=== PATIENT | male | born 1970 | race Two or more races ===

== ENCOUNTER 2018-03-14 16:27 | Emergency (ER) | payer MEDICAID ==
[~2018-03-14] VITALS: Ht 180.3 cm; Wt 104.3 kg
[~2018-03-14 16:27] MED LIST: GLIP10TA11 PO; METF500T4 PO
[2018-03-14 17:16] LABS: BASOPHILS # (AUTO) 0.1 /CMM (0.0-0.2); BASOPHILS % (AUTO) 0.3 % (0.0-2.0); EOSINOPHILS # (AUTO) 0.1 /CMM (0.0-0.7); EOSINOPHILS % (AUTO) 0.7 % (0.0-6.0); HEMATOCRIT 47 % (39-51); HEMOGLOBIN 16.4 g/dL (13.5-17.5); LYMPHOCYTES # (AUTO) 1.7 /CMM (0.8-4.8); LYMPHOCYTES % (AUTO) 9.9 % (20.0-44.0); MEAN CORPUSCULAR HEMOGLOBIN 31 PG (26.0-33.0); MEAN CORPUSCULAR HGB CONC 35 g/dl (31.0-36.0); MEAN CORPUSCULAR VOLUME 89 fL (80-96); MONOCYTES % (AUTO) 5.5 % (2.0-12.0); NEUTROPHILS # (AUTO) 14.8 /CMM (1.8-8.9); NEUTROPHILS % (AUTO) 83.6 % (43.0-81.0); PLATELET COUNT (AUTO) 319 /CMM (150-450); RDW COEFFICIENT OF VARIATION 13.4 (11.5-15.0); RED BLOOD CELL COUNT(AUTO) 5.31 MIL/uL (4.5-6.0); WHITE BLOOD COUNT (AUTO) 17.7 K/uL (4.3-11.0)
[2018-03-14] MEDS ORDERED: CEFAZOLIN 1 GM in IV D5W 50 ML IV ONE (17:30)
[2018-03-14] MEDS ORDERED: KETOROLAC TROMETHAMINE INJ 30 MG/ML VIAL IV ONE (17:30)
[2018-03-14 17:32] LABS: CALCIUM, SERUM 9.3 mg/dL (8.5-10.1); POTASSIUM 4.3 mmol/L (3.5-5.1)
[2018-03-14 17:40] LABS: BAND % (MANUAL) 11 % (0.0-5.0); EOSINOPHILS % (MANUAL) 2 % (0-4); LYMPHOCYTES % (MANUAL) 8 % (16-48); MONOCYTES % (MANUAL) 8 % (0-11.0); NEUTROPHILS % (MANUAL) 71 (42-76)
[2018-03-14] MEDS ORDERED: KETOROLAC TROMETHAMINE INJ 30 MG/ML VIAL ONE (17:53)
[2018-03-14] MEDS ORDERED: VANCOMYCIN 1 GM in IV D5W 250 ML IV ONE (18:00)
[2018-03-14] MEDS ORDERED: VANCOMYCIN 500 MG VIAL ONE (18:35)
[2018-03-14] MEDS ORDERED: VANCOMYCIN 1 GM VIAL ONE (18:36)
--- NOTE | 2018-03-14 19:40 | NUR ---
IV removed. Catheter intact and site benign. Pressure and 4x4 applied to site. No bleeding noted.
[2018-03-14 19:52] VITALS: BP 128/91
--- NOTE | 2018-03-14 19:52 | NUR ---
Patient discharged to home in stable condition. Written and verbal after care instructions given. Patient verbalizes understanding of instruction.
== END 2018-03-14 19:53 | disposition home or self-care (01) ==
LOC: ER 16:28
DX: L03.114 Cellulitis of left upper limb (principal); S61.432D Puncture wound without foreign body of left hand, subsequent encounter; D72.829 Elevated white blood cell count, unspecified; E11.9 Type 2 diabetes mellitus without complications; F17.200 Nicotine dependence, unspecified, uncomplicated; Z79.84 Long term (current) use of oral hypoglycemic drugs; X58.XXXD Exposure to other specified factors, subsequent encounter
CPT/HCPCS: 36415; 73130-TC; 80048-TC; 85025-TC; 87040-TC; A4606; J0690; J1885; J3370; J7060; Z7610

== ENCOUNTER 2023-04-17 19:25 | Emergency (ER) | payer MEDICAID, OTHER ==
[~2023-04-17] VITALS: Ht 177.8 cm; Wt 99.8 kg
[~2023-04-17 19:25] MED LIST changes: +METF-440 PO; -METF500T4 PO
[2023-04-17 20:15] LABS: BASOPHILS # (AUTO) 0.1 K/uL (0.0-0.2); BASOPHILS % (AUTO) 1.2 % (0.0-2.0); EOSINOPHILS % (AUTO) 2.3 % (0.0-6.0); HEMATOCRIT 50 % (39-51); LYMPHOCYTES # (AUTO) 2.4 K/uL (0.8-4.8); LYMPHOCYTES % (AUTO) 22.7 % (20.0-44.0); MEAN CORPUSCULAR HGB CONC 34 g/dl (31.0-36.0); MEAN CORPUSCULAR VOLUME 89 fL (80-96); MONOCYTES # (AUTO) 0.8 K/uL (0.1-1.30); MONOCYTES % (AUTO) 7.9 % (2.0-12.0); NEUTROPHILS % (AUTO) 65.9 % (43.0-81.0); PLATELET COUNT (AUTO) 309 K/uL (150-450); WHITE BLOOD COUNT (AUTO) 10.7 K/uL (4.3-11.0)
--- NOTE | 2023-04-17 20:21 | NUR ---
COVID SWAB COLLECTED AND SENT TO LAB
[2023-04-17 20:26] LABS: CALCIUM, SERUM 9.3 mg/dL (8.5-10.1); CARBON DIOXIDE 25 mmol/L (21-32); CHLORIDE 102 mmol/L (98-107); CREATININE 1.1 mg/dL (0.6-1.3); GLUCOSE 283 mg/dL (74-106); SODIUM SERUM 137 mmol/L (136-145); UREA NITROGEN, BLOOD 13 mg/dL (7-18)
--- NOTE | 2023-04-17 20:37 | NUR ---
CRITICAL RESULT - TROPONIN 451
[2023-04-17] MEDS ORDERED: ENOXAPARIN SODIUM 100 MG/ML DISP.SYRIN SQ ONE ×2 (20:50→21:00)
--- NOTE | 2023-04-17 21:16 | NUR ---
PT STATES THAT HE WANTS TO LEAVE AMA. PT WAS URGED TO STAY DUE TO HIS CURRENT CONDITION AND WAS EDUCATED REGARDING THE POTENTIAL HARMS OF LEAVING AGAINST MEDICAL ADVISE. ALSO SPOKE TO THE PT REGARDING THE THREAT TO LIFE THAT MAY OCCUR A RESULT OF LEAVING. PT STILL WANTS TO LEAVE AND SIGNED AMA
--- NOTE | 2023-04-17 21:18 | NUR ---
PATIENT STATED HE IS WILLING TO LEAVE AMA. DR THAKKAR AT THE BED SIDE EXPLAINING THE RISKS VS. BENEFITS TO THE PT.
[2023-04-17 21:33] VITALS: BP 117/105
--- NOTE | 2023-04-17 21:33 | NUR ---
IV CATHETER DISCONTINUED AND DRESSED
== END 2023-04-17 21:34 | disposition left against medical advice (07) ==
LOC: ER 19:28
DX: R07.9 Chest pain, unspecified (principal); I21.4 Non-ST elevation (NSTEMI) myocardial infarction; I10 Essential (primary) hypertension; E11.9 Type 2 diabetes mellitus without complications; F17.200 Nicotine dependence, unspecified, uncomplicated; Z79.84 Long term (current) use of oral hypoglycemic drugs; Z79.899 Other long term (current) drug therapy; Z20.822 Contact with and (suspected) exposure to COVID-19
CPT/HCPCS: 99291; 87426; 99406; 96372; 93005 ×3; 71045; 85025; 80048; 36415; 84484; 83880; J1650; C9803

== ENCOUNTER 2023-04-19 18:56 | Emergency (ER) | payer OTHER ==
[~2023-04-19] VITALS: Ht 180.3 cm; Wt 99.8 kg
--- NOTE | 2023-04-19 19:17 | NUR ---
325 ASPIRIN AND 2 SPRAYS OF NITRO GIVEN BY EMS EN ROUTE.
--- NOTE | 2023-04-19 19:40 | NUR ---
Giovana AOx4, able to express his concerns. Giovana states pain started about 2 hours ago. Patient with no signs of distress or discomfort, on ROom air, O2 sat @99. All safety precautions taken, will continue to monitor.
[2023-04-19 19:59] LABS: BASOPHILS % (AUTO) 0.4 % (0.0-2.0); EOSINOPHILS % (AUTO) 2.3 % (0.0-6.0); HEMATOCRIT 50 % (39-51); HEMOGLOBIN 16.6 g/dL (13.5-17.5); LYMPHOCYTES # (AUTO) 2.8 K/uL (0.8-4.8); LYMPHOCYTES % (AUTO) 23.3 % (20.0-44.0); MEAN CORPUSCULAR HGB CONC 33 g/dl (31.0-36.0); MEAN CORPUSCULAR VOLUME 89 fL (80-96); MONOCYTES # (AUTO) 0.9 K/uL (0.1-1.30); MONOCYTES % (AUTO) 7.3 % (2.0-12.0); NEUTROPHILS % (AUTO) 66.7 % (43.0-81.0); PLATELET COUNT (AUTO) 333 K/uL (150-450); WHITE BLOOD COUNT (AUTO) 11.9 K/uL (4.3-11.0)
--- NOTE | 2023-04-19 20:03 | NUR ---
COVID SWAB DONE AND SENT TO LAB
[2023-04-19 20:50] LABS: CALCIUM, SERUM 9.1 mg/dL (8.5-10.1); CREATININE 0.9 mg/dL (0.6-1.3); POTASSIUM 4.1 mmol/L (3.5-5.1)
--- NOTE | 2023-04-19 21:21 | NUR ---
Patient states he will be leaving AMA. Educated on importance of following MDs advise. Patient states he has made up his mind and will follow up as an out pt.
[2023-04-19] MEDS ORDERED: MAGNESIUM HYDROXIDE 30 ML UDC PO PRN (21:30)
[2023-04-19] MEDS ORDERED: ONDANSETRON HCL/PF 4 MG/2 ML VIAL IVP PRN (21:30)
[2023-04-19] MEDS ORDERED: Z GUARD REMEDY 4 OZ OINT TP PRN (21:30)
[2023-04-19] MEDS ORDERED: MAG HYDROX/AL HYDROX/SIMETH 30 ML UDC PO PRN (21:30)
[2023-04-19] MEDS ORDERED: ZOLPIDEM TARTRATE 5 MG TABLET PO PRN (21:30)
[2023-04-19] MEDS ORDERED: ACETAMINOPHEN 325 MG TABLET PO PRN (21:30)
--- NOTE | 2023-04-19 21:38 | NUR ---
MD at bedside discussing plan of care and medical advise.
--- NOTE | 2023-04-19 21:50 | NUR ---
OLU SMITH HSPITALIST AT THE BED SIDE SPEAKING THE PT REGARDING RISKS VS. BENEFIT OF LEAVING AMA.
[2023-04-19] MEDS ORDERED: DEXTROSE 50%-WATER 50 ML DISP.SYRIN IV PRN (22:00)
[2023-04-19] MEDS ORDERED: INSULIN REGULAR, HUMAN 100 UNIT/ML 3 ML VIAL SQ PRN (22:00)
[2023-04-19] MEDS ORDERED: ENOXAPARIN SODIUM 100 MG/ML DISP.SYRIN SQ ONE (22:00)
[2023-04-19] MEDS ORDERED: BLOOD SUGAR DIAGNOSTIC 1 EACH STRIP IN SCH (22:00)
--- NOTE | 2023-04-19 22:13 | NUR ---
Called lab re: coagulation tests pending...
[2023-04-19 22:32] VITALS: BP 160/95
--- NOTE | 2023-04-19 22:38 | NUR ---
Patient does not wish to proceed with medical care recommended by Dr. Garibay. Patient given information related to possible complications, up to and including , which could occur as a result of leaving the hospital at this time. Patient verbalizes understanding of risks involved due to leaving against medical advice. Patient has signed AMA form.
[2023-04-20] MEDS ORDERED: ASPIRIN 81 MG TAB.CHEW PO SCH (09:00)
== END 2023-04-19 22:38 | disposition home or self-care (01) ==
LOC: ER 19:02
DX: I21.4 Non-ST elevation (NSTEMI) myocardial infarction (principal); I25.10 Atherosclerotic heart disease of native coronary artery without angina pectoris; I10 Essential (primary) hypertension; E11.9 Type 2 diabetes mellitus without complications; F17.200 Nicotine dependence, unspecified, uncomplicated; Z20.822 Contact with and (suspected) exposure to COVID-19
CPT/HCPCS: 99291; 87426; 93005; 71045; 85025; 80048; 36415; 84484; C9803